=== PATIENT | male | born 1950 | race Caucasian/White ===

== ENCOUNTER 2018-06-13 11:29 | Outpatient (REF) | payer MEDICARE, BC, SELFPAY ==
[2018-06-13 22:14] LABS: ALT 50 U/L (12-78); AST 27 U/L (15-37); Albumin 4.2 g/dL (3.4-5.0); Alkaline Phosphatase 62 U/L (46-116); Anion Gap 10.6 mmol/L (3-11); BUN 15 mg/dL (7-18); Bilirubin, Total 0.3 mg/dL (0.2-1.0); CO2 25.4 mmol/L (21.0-32.0); CREATININE 1.02 mg/dL (0.70-1.30); Chloride 104 mmol/L (98-107); Cholesterol 193 mg/dL (50-200); Glucose 106 mg/dL (70-100); HDL Cholesterol 37 mg/dL (40-60); LDL CHOLESTEROL 118 mg/dL (<100); Potassium 4.5 mmol/L (3.5-5.1); Sodium 140 mmol/L (136-145); Total Protein 7.6 g/dL (6.4-8.2); Triglyceride 309 mg/dL (30-150)
[2018-06-15 11:53] LABS: PSA, Screening 0.5 ng/ml (0-4.5)
== END 2018-06-13 11:30 ==
LOC: NCHCN 11:29
PROVIDERS: PCP Family Medicine; Visit Provider Family Medicine
DX: E78.5 Hyperlipidemia, unspecified (principal); R73.09 Other abnormal glucose; Z12.5 Encounter for screening for malignant neoplasm of prostate
CPT/HCPCS: 80053; 80061; 83721; 84153; 83036

== ENCOUNTER 2019-01-09 10:31 | Outpatient (REF) | payer MEDICARE, BC, SELFPAY ==
[2019-01-09 22:24] LABS: Anion Gap 9.5 mmol/L (3-11); BUN 14 mg/dL (7-18); CO2 27.5 mmol/L (21.0-32.0); CREATININE 1.15 mg/dL (0.70-1.30); Calcium 9.4 mg/dL (8.5-10.1); Chloride 101 mmol/L (98-107); Cholesterol 170 mg/dL (50-200); Glucose 98 mg/dL (70-100); HDL Cholesterol 39 mg/dL (40-60); LDL CHOLESTEROL 104 mg/dL (<100); Potassium 4.7 mmol/L (3.5-5.1); Sodium 138 mmol/L (136-145); Triglyceride 124 mg/dL (30-150)
[2019-01-09 22:26] LABS: Hemoglobin A1C 6.3 % (4.5-6.2)
== END 2019-01-09 10:51 ==
LOC: NCHCN 10:31
PROVIDERS: PCP Family Medicine; Visit Provider Internal Medicine
DX: E78.5 Hyperlipidemia, unspecified (principal); E88.81 Metabolic syndrome and other insulin resistance; R73.09 Other abnormal glucose; N45.1 Epididymitis; I10 Essential (primary) hypertension
CPT/HCPCS: 80048; 80061; 83721; 83036

== ENCOUNTER 2019-05-22 12:04 | Outpatient (REF) | payer MEDICARE, BC, SELFPAY ==
[2019-05-22 22:52] LABS: Hemoglobin A1C 5.6 % (4.5-6.2)
== END 2019-05-22 12:24 ==
LOC: NCHCN 12:04
PROVIDERS: PCP Family Medicine; Visit Provider Family Medicine
DX: E88.81 Metabolic syndrome and other insulin resistance (principal); R73.09 Other abnormal glucose
CPT/HCPCS: 83036

== ENCOUNTER 2020-04-30 09:23 | Outpatient (REF) | payer MEDICARE, BC, SELFPAY ==
[2020-04-30 21:58] LABS: ALT 70 U/L (16-63); AST 33 U/L (15-37); Albumin 4.4 g/dL (3.4-5.0); Alkaline Phosphatase 58 U/L (46-116); Anion Gap 9.8 mmol/L (3-11); BUN 14 mg/dL (7-18); Bilirubin, Total 0.4 mg/dL (0.2-1.0); CO2 26.2 mmol/L (21.0-32.0); CREATININE 1.03 mg/dL (0.70-1.30); Calcium 9.5 mg/dL (8.5-10.1); Calculated LDL 125 mg/dL (<100); Chloride 103 mmol/L (98-107); Cholesterol 190 mg/dL (<200); Glucose 110 mg/dL (74-106); HDL Cholesterol 38 mg/dL (40-60); Potassium 4.7 mmol/L (3.5-5.1); Sodium 139 mmol/L (136-145); Total Protein 7.6 g/dL (6.4-8.2); Triglyceride 138 mg/dL (<150)
== END 2020-04-30 09:43 ==
LOC: NCHCN 09:23
PROVIDERS: PCP Family Medicine; Visit Provider Family Medicine
DX: I10 Essential (primary) hypertension (principal); E78.5 Hyperlipidemia, unspecified; E88.81 Metabolic syndrome and other insulin resistance; R73.09 Other abnormal glucose
CPT/HCPCS: 80053; 80061; 83036

== ENCOUNTER 2020-06-09 08:27 | Outpatient (REF) | payer MEDICARE, BC, SELFPAY ==
[2020-06-09 21:24] LABS: ALT 71 U/L (16-63); AST 28 U/L (15-37); Albumin 4.4 g/dL (3.4-5.0); Alkaline Phosphatase 54 U/L (46-116); Bilirubin, Total 0.5 mg/dL (0.2-1.0); Total Protein 7.7 g/dL (6.4-8.2)
== END 2020-06-09 08:47 ==
LOC: NCHCN 08:27
PROVIDERS: PCP Family Medicine; Visit Provider Family Medicine
DX: R74.0 Nonspecific elevation of levels of transaminase and lactic acid dehydrogenase [LDH] (principal)
CPT/HCPCS: 80076

== ENCOUNTER 2020-08-27 08:50 | Outpatient (REF) | payer MEDICARE, BC, SELFPAY ==
[2020-08-27 22:30] LABS: ALT 64 U/L (16-63); AST 25 U/L (15-37); Albumin 4.5 g/dL (3.4-5.0); Alkaline Phosphatase 62 U/L (46-116); Anion Gap 8.6 mmol/L (3-11); BUN 14 mg/dL (7-18); Bilirubin, Total 0.4 mg/dL (0.2-1.0); CO2 28.4 mmol/L (21.0-32.0); CREATININE 1.06 mg/dL (0.70-1.30); Calcium 9.3 mg/dL (8.5-10.1); Calculated LDL 126 mg/dL (<100); Chloride 104 mmol/L (98-107); Cholesterol 186 mg/dL (<200); Glucose 110 mg/dL (74-106); HDL Cholesterol 38 mg/dL (40-60); Potassium 4.3 mmol/L (3.5-5.1); Sodium 141 mmol/L (136-145); Triglyceride 114 mg/dL (<150)
== END 2020-08-27 09:10 ==
LOC: NCHCN 08:50
PROVIDERS: PCP Family Medicine; Visit Provider Family Medicine
DX: R74.01 Elevation of levels of liver transaminase levels (principal); E78.5 Hyperlipidemia, unspecified
CPT/HCPCS: 80053; 80061

== ENCOUNTER 2021-05-12 17:44 | Outpatient (REF) | payer MEDICARE, BC, SELFPAY ==
[2021-05-12 14:23] LABS: ALT 88 U/L (16-63); AST 30 U/L (15-37); Albumin 4.2 g/dL (3.4-5.0); Alkaline Phosphatase 54 U/L (46-116); Anion Gap 10.4 mmol/L (3-11); BUN 17 mg/dL (7-18); Bilirubin, Total 0.5 mg/dL (0.2-1.0); CO2 25.6 mmol/L (21.0-32.0); Calcium 9.1 mg/dL (8.5-10.1); Calculated LDL 121 mg/dL (<100); Chloride 105 mmol/L (98-107); Cholesterol 177 mg/dL (<200); Glucose 98 mg/dL (74-106); HDL Cholesterol 37 mg/dL (40-60); Potassium 4.7 mmol/L (3.5-5.1); Sodium 141 mmol/L (136-145); Total Protein 7.3 g/dL (6.4-8.2); Triglyceride 98 mg/dL (<150)
[2021-05-12 15:30] LABS: Hemoglobin A1C 6.3 % (<5.7)
== END 2021-05-12 17:45 | disposition home or self-care (01) ==
LOC: NCHCN 17:44
PROVIDERS: PCP Family Medicine; Visit Provider Family Medicine
DX: Z00.00 Encounter for general adult medical examination without abnormal findings (principal); E78.5 Hyperlipidemia, unspecified; E88.81 Metabolic syndrome and other insulin resistance; R74.01 Elevation of levels of liver transaminase levels
CPT/HCPCS: 80053; 80061; 83036

== ENCOUNTER 2021-11-16 15:28 | Outpatient (REF) | payer MEDICARE, BC, SELFPAY ==
[2021-11-16 16:54] LABS: Hemoglobin A1C 5.8 % (<5.7)
[2021-11-16 16:55] LABS: ALT 52 U/L (16-63); AST 22 U/L (15-37); Albumin 4.2 g/dL (3.4-5.0); Alkaline Phosphatase 61 U/L (46-116); Anion Gap 8.8 mmol/L (3-11); BUN 18 mg/dL (7-18); Bilirubin, Total 0.4 mg/dL (0.2-1.0); CO2 27.2 mmol/L (21.0-32.0); CREATININE 1.2 mg/dL (0.70-1.30); Calcium 9.3 mg/dL (8.5-10.1); Chloride 103 mmol/L (98-107); Estimated GFR 59.86 (mL/min/1.73m2); Glucose 99 mg/dL (74-106); Potassium 4.8 mmol/L (3.5-5.1); Sodium 139 mmol/L (136-145); Total Protein 7.7 g/dL (6.4-8.2)
== END 2021-11-16 15:29 | disposition home or self-care (01) ==
LOC: NCHCN 15:28
PROVIDERS: PCP Family Medicine; Visit Provider Family Medicine
DX: R73.03 Prediabetes (principal); I10 Essential (primary) hypertension
CPT/HCPCS: 80053; 83036

== ENCOUNTER 2022-06-18 16:14 | Outpatient (REF) | payer MEDICARE, BC, SELFPAY ==
[2022-06-18 16:45] LABS: Hemoglobin A1C 6.1 % (<5.7)
[2022-06-18 16:57] LABS: ALT 50 U/L (16-63); AST 26 U/L (15-37); Albumin 4.3 g/dL (3.4-5.0); Alkaline Phosphatase 54 U/L (46-116); Anion Gap 10.3 mmol/L (3-11); BUN 15 mg/dL (7-18); Bilirubin, Total 0.4 mg/dL (0.2-1.0); CO2 26.7 mmol/L (21.0-32.0); Calcium 8.8 mg/dL (8.5-10.1); Calculated LDL 108 mg/dL (<100); Chloride 104 mmol/L (98-107); Cholesterol 166 mg/dL (<200); Glucose 117 mg/dL (74-106); HDL Cholesterol 46 mg/dL (40-60); Potassium 5.1 mmol/L (3.5-5.1); Sodium 141 mmol/L (136-145); Total Protein 7.6 g/dL (6.4-8.2); Triglyceride 63 mg/dL (<150)
== END 2022-06-18 16:15 | disposition home or self-care (01) ==
LOC: NCHCN 16:14
PROVIDERS: PCP Family Medicine; Visit Provider Family Medicine
DX: R73.03 Prediabetes (principal); E78.5 Hyperlipidemia, unspecified; R74.01 Elevation of levels of liver transaminase levels
CPT/HCPCS: 80053; 80061; 83036

== ENCOUNTER 2023-03-28 09:51 | Outpatient (REF) | payer MEDICARE, BC, SELFPAY ==
[2023-03-28 16:06] LABS: Hemoglobin A1C 5.8 % (<5.7)
== END 2023-03-28 09:52 | disposition home or self-care (01) ==
LOC: NCHCN 09:51
PROVIDERS: PCP Family Medicine; Visit Provider Family Medicine
DX: R73.03 Prediabetes (principal); Z00.00 Encounter for general adult medical examination without abnormal findings
CPT/HCPCS: 83036

== ENCOUNTER 2023-06-08 09:22 | Outpatient (REF) | payer MEDICARE, BC, SELFPAY ==
[2023-06-08 16:14] LABS: Hemoglobin A1C 5.9 % (<5.7)
[2023-06-08 16:39] LABS: ALT 66 U/L (16-63); AST 32 U/L (15-37); Albumin 4.3 g/dL (3.4-5.0); Alkaline Phosphatase 61 U/L (46-116); Anion Gap 11.3 mmol/L (3-11); BUN 12 mg/dL (7-18); Bilirubin, Total 0.5 mg/dL (0.2-1.0); CO2 26.7 mmol/L (21.0-32.0); CREATININE 1.1 mg/dL (0.70-1.30); Calcium 9.4 mg/dL (8.5-10.1); Calculated LDL 92 mg/dL (<100); Chloride 105 mmol/L (98-107); Cholesterol 157 mg/dL (<200); Estimated GFR 71.32 (mL/min/1.73m2); Glucose 121 mg/dL (74-106); HDL Cholesterol 39 mg/dL (40-60); Potassium 5.1 mmol/L (3.5-5.1); Sodium 143 mmol/L (136-145); Total Protein 8.1 g/dL (6.4-8.2); Triglyceride 130 mg/dL (<150)
[2023-06-08 23:14] LABS: PSA, Screening 0.6 ng/mL (<=6.5)
== END 2023-06-08 09:23 | disposition home or self-care (01) ==
LOC: NCHCN 09:22
PROVIDERS: PCP Family Medicine; Visit Provider Family Medicine
DX: E78.5 Hyperlipidemia, unspecified (principal); I10 Essential (primary) hypertension; R73.03 Prediabetes; E66.9 Obesity, unspecified; Z12.5 Encounter for screening for malignant neoplasm of prostate
CPT/HCPCS: 80053; 80061; 84153; 83036

== ENCOUNTER 2024-05-23 11:37 | Outpatient (REF) | payer MEDICARE, SELFPAY | END 2024-05-23 11:38 | disposition home or self-care (01) | LOC: NCHCN 11:37 | PROVIDERS: PCP Family Medicine; Visit Provider Family Medicine | DX: L03.114 Cellulitis of left upper limb (principal) | CPT/HCPCS: 87070; 87205 ==

== ENCOUNTER 2024-06-26 16:44 | Outpatient (REF) | payer MEDICARE, SELFPAY ==
[2024-06-26 14:54] LABS: ALT 65 U/L (16-63); AST 38 U/L (15-37); Albumin 4.3 g/dL (3.4-5.0); Alkaline Phosphatase 60 U/L (46-116); Anion Gap 9.1 mmol/L (3-11); BUN 15 mg/dL (7-18); Bilirubin, Total 0.61 mg/dL (0.2-1.0); CO2 26.9 mmol/L (21.0-32.0); Calcium 8.9 mg/dL (8.5-10.1); Calculated LDL 107 mg/dL (<100); Chloride 104 mmol/L (98-107); Cholesterol 166 mg/dL (<200); Estimated GFR 79.47 (mL/min/1.73m2); Glucose 109 mg/dL (74-106); HDL Cholesterol 43 mg/dL (40-60); Potassium 4.2 mmol/L (3.5-5.1); Sodium 140 mmol/L (136-145); Total Protein 7.7 g/dL (6.4-8.2); Triglyceride 80 mg/dL (<150)
[2024-06-26 14:58] LABS: Hemoglobin A1C 5.9 % (<5.7)
[2024-06-26 23:04] LABS: PSA, Screening 0.7 ng/mL (<=6.5)
== END 2024-06-26 16:45 | disposition home or self-care (01) ==
LOC: NCHCN 16:44
PROVIDERS: PCP Family Medicine; Visit Provider Family Medicine
DX: I10 Essential (primary) hypertension (principal); R73.03 Prediabetes; N40.0 Benign prostatic hyperplasia without lower urinary tract symptoms
CPT/HCPCS: 80053; 80061; 84153; 83036

== ENCOUNTER 2024-12-25 10:50 | Outpatient (REF) | payer MEDICARE, SELFPAY ==
[2024-12-25 14:57] LABS: ALT 38 U/L (16-63); AST 24 U/L (15-37); Albumin 4.2 g/dL (3.4-5.0); Alkaline Phosphatase 59 U/L (46-116); Bilirubin, Direct 0.1 mg/dL (0.0-0.2); Bilirubin, Total 0.47 mg/dL (0.2-1.0); Total Protein 7.5 g/dL (6.4-8.2)
[2024-12-25 15:00] LABS: Hemoglobin A1C 6.1 % (<5.7)
== END 2024-12-25 10:51 | disposition home or self-care (01) ==
LOC: NCHCN 10:50
PROVIDERS: PCP Family Medicine; Visit Provider Family Medicine
DX: R73.03 Prediabetes (principal)
CPT/HCPCS: 80076; 83036

== ENCOUNTER 2025-07-17 15:01 | Outpatient (REF) | payer MEDICARE, SELFPAY ==
[2025-07-17 15:16] LABS: Hemoglobin A1C 5.9 % (<5.7)
[2025-07-17 15:30] LABS: ALT 41 U/L (16-63); AST 26 U/L (15-37); Albumin 4.4 g/dL (3.4-5.0); Alkaline Phosphatase 52 U/L (46-116); Anion Gap 9.3 mmol/L (3-11); BUN 15 mg/dL (7-18); Bilirubin, Total 0.4 mg/dL (0.2-1.0); CO2 26.7 mmol/L (21.0-32.0); Calcium 9.6 mg/dL (8.5-10.1); Calculated LDL 107 mg/dL (<100); Chloride 105 mmol/L (98-107); Cholesterol 164 mg/dL (<200); Estimated GFR 89.62 (mL/min/1.73m2); Glucose 103 mg/dL (74-106); HDL Cholesterol 40 mg/dL (>or=40); Potassium 4.8 mmol/L (3.5-5.1); Sodium 141 mmol/L (136-145); Total Protein 8.0 g/dL (6.4-8.2); Triglyceride 85 mg/dL (<150)
[2025-07-17 22:24] LABS: PSA, Screening 0.8 ng/mL (<=6.5)
== END 2025-07-17 15:02 | disposition home or self-care (01) ==
LOC: NCHCN 15:01
PROVIDERS: PCP Family Medicine; Visit Provider Family Medicine
DX: E78.5 Hyperlipidemia, unspecified (principal); R73.03 Prediabetes
CPT/HCPCS: 80053; 80061; 84153; 83036